=== PATIENT | female | born 1960 | race Caucasian/White ===

== ENCOUNTER 2017-03-05 14:00 | Outpatient (RCR) | payer OTHER, SELFPAY | END 2017-03-05 23:59 | LOC: PT 14:00 | PROVIDERS: Family Provider Family Medicine; PCP Family Medicine; Visit Provider Nurse Practitioner Family | DX: M54.5 Low back pain (principal) | CPT/HCPCS: 97110; 97162 ==

== ENCOUNTER 2017-08-11 13:00 | Outpatient (RCR) | payer OTHER, SELFPAY | END 2017-08-18 15:00 | disposition home or self-care (01) | LOC: OT 13:00 | PROVIDERS: Family Provider Family Medicine; PCP Family Medicine; Visit Provider Orthopaedic Surgery Adult Reconstructive Orthopaedic Surgery | DX: M75.101 Unspecified rotator cuff tear or rupture of right shoulder, not specified as traumatic (principal) | CPT/HCPCS: 97110; 97140; 97164; 97165 ==

== ENCOUNTER → 2019-12-08 10:59 | Outpatient (CLI) | payer MEDICARE, SELFPAY ==
[2019-12-08 11:22] LABS: Glucose,Random 599 mg/dL (74-100)
== END ==
PROVIDERS: Visit Provider Podiatrist
DX: E11.9 Type 2 diabetes mellitus without complications (principal); Z79.4 Long term (current) use of insulin
CPT/HCPCS: 36415; 82947